=== PATIENT | male | born 1995 | race Two or more races ===

== ENCOUNTER 2023-07-28 13:55 | Emergency (ER) | payer OTHER ==
[~2023-07-28] VITALS: Ht 177.8 cm; Wt 68.0 kg
[2023-07-28 14:13] VITALS: BP 115/79; TEMP 98.1; O2SAT 100
[2023-07-28] MEDS ORDERED: LIDOCAINE HCL/MPF 1% 30 ML VIAL IJ ONE (14:28)
[2023-07-28] MEDS ORDERED: TDAP [DIPH/PERTUSSIS/TET] 0.5 ML VIAL IM ONE ×2 (14:30→15:03)
[2023-07-28] MEDS ORDERED: CEPHALEXIN MONOHYDRATE 500 MG CAPSULE PO ONE ×2 (16:00→16:16)
[2023-07-28] MEDS ORDERED: IBUP-1955 PO (16:26)
[2023-07-28] MEDS ORDERED: CEPH500C2 PO (16:26)
== END 2023-07-28 16:45 | disposition home or self-care (01) ==
LOC: ER 14:02
DX: S02.2XXA Fracture of nasal bones, initial encounter for closed fracture (principal); S01.21XA Laceration without foreign body of nose, initial encounter; Y04.2XXA Assault by strike against or bumped into by another person, initial encounter; Y93.89 Activity, other specified; Y92.89 Other specified places as the place of occurrence of the external cause; Y99.8 Other external cause status
CPT/HCPCS: 99285; 70450; 12011; 90471; 90715; 70486; A6403; J3490